=== PATIENT | female | born 1960 | race Caucasian/White ===

== ENCOUNTER → 2016-07-12 | Outpatient (CLI) | payer BC ==
[~2016-07-12] MED LIST: PARO20TA5 PO
--- NOTE | 2016-07-12 19:25 | Diagnostic Imaging Report ---
Bilateral screening mammogram. The current study was also evaluated with a Computer Aided Detection (CAD) system. INDICATION: Screening. No current complaints stated on the questionnaire. COMPARISON: 07/06/2015. FINDINGS: The breasts are composed of heterogeneously dense parenchyma which may decrease mammographic sensitivity. Scattered benign-appearing calcifications are seen. Allowing for technique and positional differences, no suspicious change is seen. IMPRESSION: Dense breasts with no definite change. ACR BI-RADS Category 2: Benign findings. Result letter will be mailed to the patient. Note: At least 10% of breast cancer is not imaged by mammography. Dictated by: Dictated on workstation # [id number]
== END ==
LOC: RAD 09:13
PROVIDERS: ATTEND Family Medicine
DX: Z12.31 Encounter for screening mammogram for malignant neoplasm of breast (principal)

== ENCOUNTER → 2017-09-13 | Outpatient (CLI) | payer BC ==
--- NOTE | 2017-09-13 11:52 | Diagnostic Imaging Report ---
INDICATION: Pain in the region of the first MTP joint. TIME OF EXAMINATION: 11:07 a.m. FINDINGS: Three views of the right foot were obtained. There are degenerative changes at the first MTP joint, with joint space narrowing and marginal spurring. Metatarsals are intact. Phalanges appear intact. No fractures are seen. Midfoot and hindfoot are unremarkable apart from a small plantar calcaneal spur. IMPRESSION: Degenerative changes first MTP joint. No acute bony abnormality is detected. Dictated by: Dictated on workstation # [id number]
== END ==
LOC: RAD 10:42
PROVIDERS: ATTEND Family Medicine
DX: M19.071 Primary osteoarthritis, right ankle and foot (principal)
CPT/HCPCS: 73630

== ENCOUNTER → 2017-12-10 | Outpatient (CLI) | payer BC ==
--- NOTE | 2017-12-10 09:26 | Diagnostic Imaging Report ---
Indication: Screening. The current study was also evaluated with a Computer Aided Detection (CAD) system. Comparison made with prior examination of 07/12/2016 back through 10/20/2011. 3-D tomosynthesis was also performed and reviewed. Findings: The breasts are heterogeneously dense. There are scattered benign type calcifications. There is no new dominant mass, spiculated lesion or suspicious calcification identified. Skin, nipples and axilla are unremarkable. Impression: Category 2 benign. ACR BI-RADS Category 2: Benign findings. Result letter will be mailed to the patient. Note: At least 10% of breast cancer is not imaged by mammography. Dictated by: Dictated on workstation # [id number]
== END ==
LOC: RAD 07:31
PROVIDERS: ATTEND Family Medicine
DX: Z12.31 Encounter for screening mammogram for malignant neoplasm of breast (principal); N64.4 Mastodynia
CPT/HCPCS: 77067

== ENCOUNTER → 2019-06-02 | Outpatient (CLI) | payer BC ==
--- NOTE | 2019-06-03 10:04 | Diagnostic Imaging Report ---
Digital mammogram. Bilateral screening The study was compared to the prior exams of 12/10/2017, 07/12/2016 and 07/06/2015. At this time there are no current complaints. The current study was also evaluated with a Computer Aided Detection (CAD) system. FINDINGS: The fibroglandular tissue in both breasts is heterogeneously dense. This does limit the sensitivity of this exam. Overall, there does not appear to have been any significant change when compared to the prior study. No primary or secondary sign of malignancy is noted. IMPRESSION: There is no radiographic evidence for malignancy. ACR BI-RADS Category 1: Negative. Result letter will be mailed to the patient. Note: At least 10% of breast cancer is not imaged by mammography. Dictated by: Dictated on workstation # [id number]
== END ==
LOC: RAD 08:27
PROVIDERS: ATTEND Family Medicine
DX: Z12.31 Encounter for screening mammogram for malignant neoplasm of breast (principal)
CPT/HCPCS: 77067

== ENCOUNTER → 2019-06-26 | Outpatient (CLI) | payer BC ==
--- NOTE | 2019-06-26 10:35 | Diagnostic Imaging Report ---
PROCEDURE: US carotid duplex, bilateral. TECHNIQUE: Multiple real-time grayscale images were obtained over the carotid arteries in various projections, bilaterally. Additional spectral analysis and color Doppler duplex images were also obtained. INDICATION: Transient ischemic attacks. FINDINGS: No significant plaquing is identified in either carotid system. There is some velocity elevation in the mid right internal carotid artery reaching 133 cm/s. No other velocity elevation is identified. Both vertebral arteries show antegrade flow. IMPRESSION: Mild velocity elevation in the mid right ICA, consistent with approximately 50% diameter stenosis. The study is otherwise unremarkable. Parameters based on the consensus panel [place]-Scale and Doppler ultrasound criteria published May 2003, Radiology, Volume 229. DOPPLER (peak systolic velocity M/S Right Left CCA 1.34 1.28 ICA Proximal 1.09 1.04 ICA Mid 1.33 0.92 ICA Distal .99 1.14 RATIO 1.0 0.72 ECA 1.01 0.99 VERT 0.85 0.77 Dictated by: Dictated on workstation # [id number]
--- NOTE | 2019-06-26 10:46 | Diagnostic Imaging Report ---
PROCEDURE: MR imaging of the brain without contrast. TECHNIQUE: Multiplanar, multisequence MR imaging of the brain was performed without contrast. INDICATION: Transient ischemic attacks. COMPARISON: Correlation is made with prior MRI of the brain from 06/15/2015. FINDINGS: No diffusion restriction is identified to suggest acute ischemia. The normal expected flow voids within the carotid siphons are seen. The ventricles and sulci are within normal limits. The areas of signal in the deacon appear similar to prior exam. There is no midline shift. No acute intra-axial or extra-axial hemorrhage is detected. Corpus callosum is unremarkable. The sella and parasellar structures are unremarkable. IMPRESSION: Stable chronic changes when compared with examination from 06/15/2015. No acute intracranial process is detected. Dictated by: Dictated on workstation # [id number]
== END ==
LOC: RAD 08:59
PROVIDERS: ATTEND Family Medicine
DX: G45.9 Transient cerebral ischemic attack, unspecified (principal); G43.909 Migraine, unspecified, not intractable, without status migrainosus; R55 Syncope and collapse
CPT/HCPCS: 70551; 93880

== ENCOUNTER → 2021-03-04 | Outpatient (CLI) | payer BC ==
--- NOTE | 2021-03-04 11:16 | Diagnostic Imaging Report ---
INDICATION: Routine screening. Comparison is made with prior mammogram 06/02/2019 and 12/10/2017. 2-D and 3-D bilateral screening mammography was performed with CAD. Both breasts are heterogeneously dense, limiting the sensitivity of mammography. The parenchymal pattern is stable. No mass or malignant-appearing microcalcifications are seen. The axillae are unremarkable. IMPRESSION: BI-RADS Category 2 No mammographic features suspicious for malignancy are identified. ACR BI-RADS Category 2: Benign findings. Result letter will be mailed to the patient. Note: At least 10% of breast cancer is not imaged by mammography. Dictated by: Dictated on workstation # [id number]
== END ==
LOC: RAD 08:30
PROVIDERS: ATTEND Family Medicine
DX: Z12.31 Encounter for screening mammogram for malignant neoplasm of breast (principal)
CPT/HCPCS: 77063; 77067

== ENCOUNTER → 2022-05-01 | Outpatient (CLI) | payer BC ==
--- NOTE | 2022-05-01 12:13 | Diagnostic Imaging Report ---
Indication: Routine screening. Comparison is made with prior mammogram 03/04/2021 and 06/02/2019. 2-D and 3-D bilateral screening mammography was performed with CAD. CAD is utilized. The current study was also evaluated with a Computer Aided Detection (CAD) system. Both breasts are heterogeneously dense, limiting the sensitivity of mammography. There are benign calcifications. No mass or malignant-appearing microcalcifications are seen. Axillae are unremarkable. IMPRESSION: BI-RADS Category 2 No mammographic features suspicious for malignancy are identified. ACR BI-RADS Category 2: Benign findings. Result letter will be mailed to the patient. Note: At least 10% of breast cancer is not imaged by mammography. Dictated by: Dictated on workstation # [id number]
== END ==
LOC: RAD 08:15
PROVIDERS: ATTEND Family Medicine
DX: Z12.31 Encounter for screening mammogram for malignant neoplasm of breast (principal)
CPT/HCPCS: 77063; 77067

== ENCOUNTER 2022-05-10 05:41 | Outpatient (CLI) | payer BC ==
[~2022-05-10] VITALS: Ht 167.6 cm; Wt 64.0 kg
[2022-05-10] MEDS ORDERED: CALC600T91 PO (15:23)
[2022-05-10] MEDS ORDERED: ATOR10TA66 PO (15:23)
[2022-05-10] MEDS ORDERED: ASPI-1238 PO (15:23)
[2022-05-10] MEDS ORDERED: MULT-593 PO (15:23)
[2022-05-10] MEDS ORDERED: BUPR150T24 PO (15:23)
[2022-05-10] MEDS ORDERED: ESCI20TA39 PO (15:23)
== END 2022-05-10 15:30 | disposition home or self-care (01) ==
LOC: PREOP 05:41
PROVIDERS: ATTEND Internal Medicine
DX: Z01.818 Encounter for other preprocedural examination (principal)

== ENCOUNTER 2022-05-19 07:24 | Day surgery (SDC) | payer BC ==
--- NOTE | 2022-05-05 06:29 | HISTORY AND PHYSICAL ---
DATE OF SERVICE: COLONOSCOPY HISTORY AND PHYSICAL DATE OF ADMISSION: 05/19/2022 HISTORY OF PRESENT ILLNESS: Anaid The patient is a 61-year-old white female referred by Dr. Gan for her second screening colonoscopy. The first was performed by Dr. Shaikh a little over 11 years ago and review of electronic medical record was reported as normal. The patient is deemed to be of average risk as she is not aware of any family history for colon cancer or any polyposis syndromes. She denies bright red blood per rectum. Tends towards constipation, but this is not a change for her. She has had no abdominal pain, distention or change in weight. PAST MEDICAL HISTORY: Significant for depression and hyperlipidemia with no known history of vascular disease. MEDICATIONS ON ADMISSION: Include escitalopram 20 mg daily p.o., bupropion 150 mg daily, atorvastatin 10 mg daily, and a baby aspirin daily. PAST SURGICAL HISTORY: Significant for a section over 25 years ago. FAMILY HISTORY: Mother is living at the age of 90 with osteoarthritis. Father at age of 76 with complications of non-Hodgkin's lymphoma. 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 with no past smoking or significant drinking history. REVIEW OF SYSTEMS: CONSTITUTIONAL: Denies night sweats, chills, fever or change in weight. PULMONARY: Denies cough, wheezing or shortness of breath. CARDIOVASCULAR: Denies orthopnea, PND, pedal edema, chest discomfort or syncope. GASTROINTESTINAL: As noted in the HPI. PHYSICAL EXAMINATION: GENERAL: Reveals a white female, who appeared to be in no acute distress. VITAL SIGNS: Blood pressure 118/72 and weight is 141 pounds. HEENT: Unremarkable. Sclerae nonicteric. CHEST: Clear to auscultation. CARDIOVASCULAR: Reveals a regular rate and rhythm without murmur, S3 or S4. ABDOMEN: Soft, supple without mass, organomegaly or tenderness. EXTREMITIES: Reveal no cyanosis, clubbing or edema. ASSESSMENT AND PLAN: The patient is being set up for her second screening colonoscopy, deemed to be of average risk as noted above. Prep instructions with Suprep were given and questions were answered. Electronic medical record was reviewed. I thank you for the referral of this pleasant lady. Job ID: [id number] DocumentID: [id number] Dictated Date: 05/01/2022 17:24:31 [employer] Reports Developer Date: 05/01/2022 17:43:40 Dictated By: MOSES PUENTE MD
[~2022-05-19] VITALS: Ht 167.6 cm; Wt 64.0 kg
[2022-05-19] VITALS (7 sets, daily range): BP systolic 77–110; BP diastolic 48–73
[~2022-05-19 07:24] MED LIST changes: +ASPI-1238 PO; +ATOR10TA66 PO; +BUPR150T24 PO; +CALC600T91 PO; +ESCI20TA39 PO; +MULT-593 PO
[2022-05-19] MEDS ORDERED: LACTATED RINGERS 1,000 ML IV STA (07:29)
--- NOTE | 2022-05-19 07:52 | Pre-Op Note & Conscious Sedat ---
Pre-Operative Progress Note Date H&P Reviewed: May 19, 2022 Time H&P Reviewed: 07:52 History & Physical: H&P Reviewed, Patient Examed, No changes noted Pre-Op Diagnosis: screening Conscious Sedation Pre-Proced ASA Score 2 For ASA 3 and 4: Consider anesthesia and medical clearance. Also, for patients with a history of failed moderate sedation consider anesthesia. Airway Lungs Heart ASA score ASA 1: a normal healthy patient ASA 2: a patient with a mild systemic disease (mid diabetes, controlled hypertension, obesity ASA 3: a patient with a severe systemic disease that limits activity (angina, COPD, prior Myocardial infarction) ASA 4: a patient with an incapacitating disease that is a constant threat to life (CHF, renal failure) ASA 5: a moribund patient not expected to survive 24 hrs. (ruptured aneurysm) ASA 6: a declared brain- patient whose organs are being harvested. For emergent operations, add the letter E after the classification Mallampati Classification Grade 2 Sedation Plan Analgesia, Amnesia, Plan communicated to team members, Discussed options with patient/fam, Discussed risks with patient/fam The patient is an appropriate candidate to undergo the planned procedure, sedation, and anesthesia. The patient immediately re-assessed prior to indication. MOSES PUENTE MD May 19, 2022 07:52
[2022-05-19] MEDS ORDERED: MIDAZOLAM 2 MG/2 ML (VERSED) VIAL ONE (08:22)
[2022-05-19] MEDS ORDERED: PROPOFOL INJECTION 50 ML IV ONE ×2 (08:22→08:45)
--- NOTE | 2022-05-19 09:06 | Progress Note-Post Operative ---
Post-Procedure Note Physician (s)/Machine I Engraver (s) Physician MOSES PUENTE MD Pre-Procedure Diagnosis Pre-Procedure Diagnosis: screening Post-Procedure Diagnosis Post-operative diagnosis: Prior to undergoing colonoscopy digital rectal evaluation was performed. Anal sphincter tone was normal and the perianal reflexes intact. No abnormalities noted on digital inspection of the anal canal or distal rectal vault. The colonoscope was then inserted into the rectum and under direct visualization advanced to the cecum. The cecum was identified by identification of the ileocecal valve and the cecal strap. Photographic documentation was obtained. A careful inspection was made as the colonoscope was withdrawn. The quality the prep was good. Findings: There was no evidence for internal or external hemorrhoids. The rectum sigmoid colon descending colon splenic flexure transverse colon hepatic flexure ascending colon and cecum were unremarkable with no evidence for neoplasia or diverticular disease. Assessment: Normal colonoscopy to the cecum would advocate consideration for repeat screening colonoscopy in 10 years. CC: Dr. Lynnette Gan. MOSES PUENTE MD May 19, 2022 09:06
--- NOTE | 2022-05-19 10:48 | Anesthesia-General Post-Op ---
MAC Patient Condition Mental Status/LOC: Same as Preop Cardiovascular: Satisfactory Nausea/Vomiting: Absent Respiratory: Satisfactory Pain: Controlled Complications: Absent Post Op Complications Complications None Follow Up Care/Instructions Patient Instructions None needed. Anesthesiology Discharge Order Discharge Order Patient is doing well, no complaints, stable vital signs, no apparent adverse anesthesia problems. No complications reported per nursing. KATHERINE MCALLISTER CRNA May 19, 2022 10:48
== END 2022-05-19 10:20 | disposition home or self-care (01) ==
LOC: ENDO 07:24
PROVIDERS: ATTEND Internal Medicine
DX: Z12.11 Encounter for screening for malignant neoplasm of colon (principal)

== ENCOUNTER → 2023-06-05 | Outpatient (CLI) | payer BC ==
--- NOTE | 2023-06-05 17:02 | Diagnostic Imaging Report ---
INDICATION: Routine screening. Comparison is made with prior mammogram from 05/01/2022 and 03/04/2021. 2-D and 3-D bilateral screening mammography was performed with CAD. Scattered fibroglandular densities are identified bilaterally. The parenchymal pattern is stable. No mass or malignant-appearing microcalcifications are identified. Axillae are unremarkable. IMPRESSION: No mammographic features suspicious for malignancy are identified. ACR BI-RADS Category 1: Negative. Result letter will be mailed to the patient. Note: At least 10% of breast cancer is not imaged by mammography. BI-RADS Category 1 Dictated by: Dictated on workstation # [id number]
== END ==
LOC: RAD 14:56
PROVIDERS: ATTEND Family Medicine
DX: Z12.31 Encounter for screening mammogram for malignant neoplasm of breast (principal)
CPT/HCPCS: 77063; 77067